=== PATIENT | male | born 1970 | race Hispanic/Latino ===

== ENCOUNTER 2019-01-28 12:01 | Emergency (ER) | payer BC, OTHER ==
[~2019-01-28] VITALS: Ht 170.2 cm; Wt 117.9 kg
[~2019-01-28 12:01] MED LIST: LEVAQUIN500 MG PO; LISINOPRIL20 MG PO; LORTAB 7.5-5001 EACH PO
== END 2019-01-28 15:05 | disposition home or self-care (01) ==
LOC: ER 12:01
DX: K62.89 Other specified diseases of anus and rectum (principal); Z88.5 Allergy status to narcotic agent; I10 Essential (primary) hypertension; E11.9 Type 2 diabetes mellitus without complications; Z82.49 Family history of ischemic heart disease and other diseases of the circulatory system
CPT/HCPCS: 93005; 99284